=== PATIENT | male | born 1965 | race African-American/Black ===

== ENCOUNTER 2019-04-02 00:19 | Inpatient (IN) | payer MEDICAID ==
[~2019-04-02] VITALS: Ht 188 cm; Wt 166.7 kg
[~2019-04-02 00:19] MED LIST: ASPRIN; CARV-39; HCTZ; LISI-170; SIMV80TA18 PO; TOPI50TA35
[2019-04-02] MEDS ORDERED: SODIUM CHLORIDE FLUSH 10ML SYR IVF ONE (00:30)
[2019-04-02] MEDS ORDERED: NITROGLYCERIN OINT 2%, 1GM TP ONE ×2 (00:30→00:39)
[2019-04-02] MEDS ORDERED: HEPARIN 5,000 UNITS/ML, 1ML IV ONE (00:30)
[2019-04-02] MEDS ORDERED: HEPARIN 5,000 UNITS/ML, 1ML ONE (00:39)
[2019-04-02] MEDS ORDERED: HEPARIN 25,000 UNITS/500ML PMX 500 ML ONE (00:40)
[2019-04-02 00:49] LABS: MEAN CORPUSCULAR HEMOGLOBIN 27.2 pg (27.5-34.5); MEAN CORPUSCULAR HGB CONC 31.7 g/dL (33.2-36.2); MEAN CORPUSCULAR VOLUME 85.7 fL (81-97); MEAN PLATELET VOLUME 8.2 fL (7.4-10.4); PLATELET COUNT 272 x10^3/uL (130-400); RED BLOOD COUNT 5.41 x10^6/uL (4.38-5.82); RED CELL DISTRIBUTION WIDTH 15.6 % (9.4-14.8)
[2019-04-02] MEDS: HEPARIN 25,000 UNITS/500ML PMX 500 ML IV PRN ×3 (00:55→22:58)
[2019-04-02 00:57] LABS: INTERNATIONAL NORMALIZED RATIO 0.99 (0.93-1.1); PROTHROMBIN TIME 10.4 Seconds (9.6-11.5)
--- NOTE | 2019-04-02 00:58 | NUR ---
PT WITH HEPARIN DRIP STARTED AND NTG PATCH PLACED TO PT LEFT CHEST. PT REMAINS PAIN FREE. BP IS IMPROVING WITH LAST BP AT 168/97
[2019-04-02 00:59] LABS: ALANINE AMINOTRANSFERASE 31 U/L (12-78); ALBUMIN 3.6 g/dL (3.4-5.0); ANION GAP 5 mmol/L (5-15); CALCIUM 8.7 mg/dL (8.5-10.1); CHLORIDE 110 mmol/L (98-107); CREATININE 1.25 mg/dL (0.7-1.3)
[2019-04-02] MEDS ORDERED: POLYETHYLENE GLYCOL 17 GM PACKET PO PRN (01:00)
[2019-04-02] MEDS ORDERED: BISACODYL 10 MG SUPP PR PRN (01:00)
[2019-04-02] MEDS ORDERED: ONDANSETRON 2MG/ML, 2ML IVPush PRN (01:00)
[2019-04-02] MEDS ORDERED: OXYcodone IR 5MG TABLET PO PRN (01:00)
[2019-04-02] MEDS ORDERED: hydrALAzine 20 MG/ML, 1ML IVPush PRN (01:00)
[2019-04-02] MEDS ORDERED: morphine SULFATE 10 MG/ML, 1ML IVPush PRN (01:00)
[2019-04-02] MEDS ORDERED: ONDANSETRON ODT 4 MG PO PRN (01:00)
[2019-04-02] MEDS ORDERED: ACETAMINOPHEN 325 MG TABLET PO PRN (01:00)
[2019-04-02] MEDS ORDERED: HEPARIN 5,000 UNITS/ML, 1ML SQ SCH (01:00)
[2019-04-02] MEDS ORDERED: DOCUSATE 100 MG CAPSULE PO PRN (01:00)
[2019-04-02] MEDS ORDERED: NITROGLYCERIN 0.4 MG BOTTLE (25 TABS) SL PRN (01:00)
[2019-04-02] MEDS ORDERED: PROMETHAZINE 25 MG/ML, 1ML IM PRN (01:00)
[2019-04-02 01:04] LABS: ALKALINE PHOSPHATASE 126 U/L (45-117); BILIRUBIN,TOTAL 0.2 mg/dL (0.2-1.0); TOTAL PROTEIN 7.5 g/dL (6.4-8.2)
[2019-04-02 01:05] LABS: TROPONIN I 0.175 ng/mL (0.000-0.045)
[2019-04-02 01:15] LABS: MD YES
[2019-04-02 01:20] LABS: BAND#(MANUAL) 0.08 x10^3/uL; BANDS%(MANUAL) 1 % (0-7); BASOS#(MANUAL) 0.08 x10^3/uL (0-0.1); BASOS% (MANUAL) 1 % (0-1); EOS#(MANUAL) 0.23 x10^3/uL (0.0-0.4); EOS% (MANUAL) 3 % (1-7); LYMPH#(MANUAL) 1.88 x10^3/uL (1-3.4); LYMPHS% (MANUAL) 25 % (22-44); METAMYELOCYTES# (MANUAL) 0.08 x10^3/uL (0-0); METAMYELOCYTES% (MANUAL) 1 % (0-1); MONOS#(MANUAL) 0.45 x10^3/uL (0.3-2.7); MONOS% (MANUAL) 6 % (2-9); MYELOCYTES# (MANUAL) 0.08 x10^3/uL (0-0); MYELOCYTES% (MANUAL) 1 % (0-0); REACTIVE LYMPHS # (MANUAL) 0.38 x10^3/uL (0-0); REACTIVE LYMPHS % (MANUAL) 5 % (0-0); SEG#(MANUAL) 4.28 x10^3/uL (1.8-6.8); SEGS% (MANUAL) 57 % (42-75)
[2019-04-02 01:21] LABS: ANISOCYTOSIS 1+
[2019-04-02 01:22] LABS: <PLATELET ESTIMATE> ADEQUATE; LARGE PLATELETS 1+; OVALOCYTES 1+
[2019-04-02 01:29] LABS: FREE T4 (FREE THYROXINE) 0.88 ng/dL (0.76-1.46)
[2019-04-02 01:42] VITALS: BP 161/104
[2019-04-02] MEDS ORDERED: CLOP75TA52 PO (02:01)
[2019-04-02] MEDS: SODIUM CHLORIDE 0.9% 1,000 ML IV SCH ×4 (02:16→23:08)
[2019-04-02 02:21] VITALS: BP 153/106
[2019-04-02 05:49] VITALS: BP 141/67
[2019-04-02] MEDS: ASPIRIN 325 MG TABLET EC PO SCH (05:53)
[2019-04-02] MEDS: CARVEDILOL 12.5 MG TABLET PO SCH ×2 (05:53→17:49)
[2019-04-02 06:58] LABS: BASOPHILS # (AUTO) 0.11 x10^3/uL (0-0.1); BASOPHILS % (AUTO) 2 % (0-1); EOSINOPHILS # (AUTO) 0.32 x10^3/uL (0-0.4); EOSINOPHILS % (AUTO) 5 % (1-7); LYMPHOCYTES # (AUTO) 2.05 x10^3/uL (1-3.4); LYMPHOCYTES % (AUTO) 35 % (22-44); MD NO; MEAN CORPUSCULAR HEMOGLOBIN 27.3 pg (27.5-34.5); MEAN CORPUSCULAR HGB CONC 31.9 g/dL (33.2-36.2); MEAN CORPUSCULAR VOLUME 85.6 fL (81-97); MEAN PLATELET VOLUME 8.4 fL (7.4-10.4); MONOCYTES # (AUTO) 0.57 x10^3/uL (0.2-0.8); MONOCYTES % (AUTO) 10 % (2-9); NEUTROPHILS # (AUTO) 2.79 x10^3/uL (1.8-6.8); NEUTROPHILS % (AUTO) 48 % (42-75); PLATELET COUNT 209 x10^3/uL (130-400); RED BLOOD COUNT 5.26 x10^6/uL (4.38-5.82); RED CELL DISTRIBUTION WIDTH 15.5 % (9.4-14.8)
[2019-04-02 07:05] LABS: CHLORIDE 111 mmol/L (98-107)
[2019-04-02 07:12] LABS: ALANINE AMINOTRANSFERASE 29 U/L (12-78); ALBUMIN 3.3 g/dL (3.4-5.0); ALKALINE PHOSPHATASE 107 U/L (45-117); ANION GAP 6 mmol/L (5-15); BILIRUBIN,TOTAL 0.3 mg/dL (0.2-1.0); CALCIUM 8.5 mg/dL (8.5-10.1); CHOL/HDL RATIO 3.1; CHOLESTEROL, TOTAL 119 mg/dL (140-239); CREATININE 1.03 mg/dL (0.7-1.3); HDL CHOL % 33 % (26-37); HDL CHOLESTEROL (DIRECT) 39 mg/dL (40-60); LDL CHOLESTEROL,CALCULATED 67 mg/dL (54-169); LDL/HDL RATIO 1.7 (0.5-3.0); TRIGLYCERIDES 65 mg/dL (50-200); TROPONIN I 0.144 ng/mL (0.000-0.045); VLDL CHOLESTEROL 13 mg/dL (0-25)
[2019-04-02 08:00] VITALS: BP 149/95
[2019-04-02] MEDS: LISINOPRIL 20 MG TABLET PO SCH (08:34)
[2019-04-02 08:35] LABS: TROPONIN I 0.153 ng/mL (0.000-0.045)
[2019-04-02] MEDS: HEPARIN 5,000 UNITS/ML, 1ML IV PRN ×3 (09:14→22:56)
[2019-04-02] MEDS ORDERED: SODIUM CHLORIDE 0.9% 1,000 ML IV SCH (11:00)
[2019-04-02 13:10] VITALS: BP 136/95
[2019-04-02] MEDS ORDERED: FENTANYL PF 100 MCG/2ML ONE (14:22)
[2019-04-02] MEDS ORDERED: MIDAZOLAM 1 MG/ML, 5ML ONE (14:22)
[2019-04-02] MEDS ORDERED: HEPARIN 1,000 UNITS/ML, 10ML ONE (14:22)
[2019-04-02] MEDS ORDERED: LIDOCAINE-MPF 1%, 5ML ONE (14:22)
[2019-04-02] MEDS ORDERED: VERAPAMIL 2.5 MG/ML, 2ML ONE (14:22)
[2019-04-02] MEDS ORDERED: CHLORHEXIDINE 15 ML UDC MM PRN (15:30)
[2019-04-02] MEDS ORDERED: INSULIN LISPRO 100 UNITS/ML, PEN SQ-INSULIN SCH (15:30)
[2019-04-02 15:56] LABS: ALBUMIN 3.5 g/dL (3.4-5.0); ANION GAP 6 mmol/L (5-15); CALCIUM 8.5 mg/dL (8.5-10.1); CHLORIDE 108 mmol/L (98-107)
[2019-04-02 15:59] LABS: ALANINE AMINOTRANSFERASE 30 U/L (12-78); ALKALINE PHOSPHATASE 108 U/L (45-117); BILIRUBIN,TOTAL 0.8 mg/dL (0.2-1.0); CREATININE 0.94 mg/dL (0.7-1.3); TOTAL PROTEIN 7.3 g/dL (6.4-8.2)
[2019-04-02 16:33] LABS: BASOPHILS # (AUTO) 0.08 x10^3/uL (0-0.1); BASOPHILS % (AUTO) 1 % (0-1); EOSINOPHILS # (AUTO) 0.35 x10^3/uL (0-0.4); EOSINOPHILS % (AUTO) 6 % (1-7); LYMPHOCYTES # (AUTO) 2.21 x10^3/uL (1-3.4); LYMPHOCYTES % (AUTO) 37 % (22-44); MD SCAN; MEAN CORPUSCULAR HEMOGLOBIN 27.4 pg (27.5-34.5); MEAN CORPUSCULAR HGB CONC 32.1 g/dL (33.2-36.2); MEAN CORPUSCULAR VOLUME 85.4 fL (81-97); MEAN PLATELET VOLUME 8.4 fL (7.4-10.4); MONOCYTES # (AUTO) 0.57 x10^3/uL (0.2-0.8); MONOCYTES % (AUTO) 10 % (2-9); NEUTROPHILS # (AUTO) 2.71 x10^3/uL (1.8-6.8); NEUTROPHILS % (AUTO) 46 % (42-75); PLATELET COUNT 258 x10^3/uL (130-400); RED BLOOD COUNT 5.43 x10^6/uL (4.38-5.82); RED CELL DISTRIBUTION WIDTH 15.3 % (9.4-14.8)
[2019-04-02 19:01] VITALS: BP 128/75
[2019-04-02 19:43] LABS: MICROSCOPIC NOT IND
[2019-04-02] MEDS ORDERED: NITROGLYCERIN OINT 2%, 1GM TP SCH (21:00)
[2019-04-02] MEDS: ATORVASTATIN 80 MG TABLET PO SCH (21:03)
[2019-04-02] MEDS: NITROGLYCERIN OINT 2%, 1GM TP SCH (21:04)
[2019-04-02] MEDS: SODIUM CHLORIDE FLUSH 10ML SYR IVF SCH (21:05)
[2019-04-03] MEDS: NITROGLYCERIN OINT 2%, 1GM TP SCH ×4 (03:00→17:47)
[2019-04-03 03:59] VITALS: BP 107/68
[2019-04-03 06:11] VITALS: BP 130/88
[2019-04-03] MEDS: CARVEDILOL 12.5 MG TABLET PO SCH ×2 (06:17→17:41)
[2019-04-03] MEDS: ASPIRIN 325 MG TABLET EC PO SCH (06:17)
[2019-04-03 07:00] VITALS: BP 134/88
[2019-04-03] MEDS: SODIUM CHLORIDE 0.9% 1,000 ML IV SCH (07:08)
[2019-04-03] MEDS: SODIUM CHLORIDE FLUSH 10ML SYR IVF SCH ×2 (08:34→22:07)
[2019-04-03] MEDS: LISINOPRIL 20 MG TABLET PO SCH (08:35)
[2019-04-03 13:19] VITALS: BP 169/110
[2019-04-03 14:53] VITALS: BP 126/82
[2019-04-03] MEDS: HEPARIN 25,000 UNITS/500ML PMX 500 ML IV PRN (14:54)
[2019-04-03 19:20] VITALS: BP 149/91
[2019-04-03] MEDS: ATORVASTATIN 80 MG TABLET PO SCH (22:07)
[2019-04-04 00:16] VITALS: BP 124/74
[2019-04-04] MEDS: NITROGLYCERIN OINT 2%, 1GM TP SCH ×4 (00:19→17:58)
[2019-04-04 05:20] LABS: BASOPHILS # (AUTO) 0.11 x10^3/uL (0-0.1); BASOPHILS % (AUTO) 2 % (0-1); EOSINOPHILS # (AUTO) 0.41 x10^3/uL (0-0.4); EOSINOPHILS % (AUTO) 7 % (1-7); LYMPHOCYTES % (AUTO) 33 % (22-44); MD NO; MEAN CORPUSCULAR HEMOGLOBIN 27.3 pg (27.5-34.5); MEAN CORPUSCULAR HGB CONC 32.4 g/dL (33.2-36.2); MEAN CORPUSCULAR VOLUME 84.2 fL (81-97); MEAN PLATELET VOLUME 8.2 fL (7.4-10.4); MONOCYTES # (AUTO) 0.66 x10^3/uL (0.2-0.8); MONOCYTES % (AUTO) 11 % (2-9); NEUTROPHILS # (AUTO) 3.04 x10^3/uL (1.8-6.8); NEUTROPHILS % (AUTO) 48 % (42-75); PLATELET COUNT 280 x10^3/uL (130-400); RED BLOOD COUNT 5.18 x10^6/uL (4.38-5.82); RED CELL DISTRIBUTION WIDTH 15.1 % (9.4-14.8)
[2019-04-04 05:35] LABS: ANION GAP 6 mmol/L (5-15); CALCIUM 8.6 mg/dL (8.5-10.1); CHLORIDE 107 mmol/L (98-107)
[2019-04-04 05:36] LABS: CREATININE 1.16 mg/dL (0.7-1.3)
[2019-04-04 06:39] VITALS: BP 125/81
[2019-04-04] MEDS: ASPIRIN 325 MG TABLET EC PO SCH (06:45)
[2019-04-04] MEDS: CARVEDILOL 12.5 MG TABLET PO SCH (06:46)
[2019-04-04] MEDS: HEPARIN 25,000 UNITS/500ML PMX 500 ML IV PRN ×2 (06:55→21:40)
[2019-04-04] MEDS: LISINOPRIL 20 MG TABLET PO SCH (09:54)
[2019-04-04] MEDS: SODIUM CHLORIDE FLUSH 10ML SYR IVF SCH ×2 (09:55→20:59)
[2019-04-04 12:40] VITALS: BP 135/89
[2019-04-04] MEDS: NICOTINE 7 MG/24 HR PATCH.TD24 TD SCH (14:41)
[2019-04-04 17:57] VITALS: BP 136/88
[2019-04-04] MEDS: CARVEDILOL 6.25 MG TABLET PO SCH (17:58)
[2019-04-04 19:37] VITALS: BP 145/89
[2019-04-04] MEDS: ATORVASTATIN 80 MG TABLET PO SCH (20:59)
[2019-04-05 00:04] VITALS: BP 134/84
[2019-04-05] MEDS: NITROGLYCERIN OINT 2%, 1GM TP SCH ×4 (00:10→18:09)
[2019-04-05] MEDS: TEMAZEPAM 15 MG CAPSULE PO PRN ×2 (00:11→22:30)
[2019-04-05 06:18] VITALS: BP 138/92
[2019-04-05] MEDS: ASPIRIN 325 MG TABLET EC PO SCH (06:28)
[2019-04-05 07:15] VITALS: BP 128/88
[2019-04-05 07:18] LABS: BASOPHILS # (AUTO) 0.07 x10^3/uL (0-0.1); BASOPHILS % (AUTO) 1 % (0-1); EOSINOPHILS # (AUTO) 0.38 x10^3/uL (0-0.4); EOSINOPHILS % (AUTO) 6 % (1-7); LYMPHOCYTES # (AUTO) 2.34 x10^3/uL (1-3.4); LYMPHOCYTES % (AUTO) 37 % (22-44); MD NO; MEAN CORPUSCULAR HEMOGLOBIN 26.9 pg (27.5-34.5); MEAN CORPUSCULAR HGB CONC 32.3 g/dL (33.2-36.2); MEAN CORPUSCULAR VOLUME 83.2 fL (81-97); MEAN PLATELET VOLUME 8.6 fL (7.4-10.4); MONOCYTES # (AUTO) 0.64 x10^3/uL (0.2-0.8); MONOCYTES % (AUTO) 10 % (2-9); NEUTROPHILS # (AUTO) 2.94 x10^3/uL (1.8-6.8); NEUTROPHILS % (AUTO) 46 % (42-75); PLATELET COUNT 274 x10^3/uL (130-400); RED BLOOD COUNT 5.27 x10^6/uL (4.38-5.82); RED CELL DISTRIBUTION WIDTH 15.1 % (9.4-14.8)
[2019-04-05 07:24] LABS: ANION GAP 5 mmol/L (5-15); CHLORIDE 108 mmol/L (98-107); CREATININE 1.27 mg/dL (0.7-1.3)
[2019-04-05] MEDS: SODIUM CHLORIDE FLUSH 10ML SYR IVF SCH ×3 (09:29→21:43)
[2019-04-05] MEDS: CARVEDILOL 6.25 MG TABLET PO SCH ×2 (09:29→18:09)
[2019-04-05] MEDS: LISINOPRIL 20 MG TABLET PO SCH (09:29)
[2019-04-05] MEDS ORDERED: ACETAMINOPHEN 325 MG TABLET PO PRN (10:00)
[2019-04-05] MEDS ORDERED: INSULIN LISPRO 100 UNITS/ML, PEN SQ-INSULIN SCH (10:00)
[2019-04-05] MEDS ORDERED: CHLORHEXIDINE 15 ML UDC MM PRN (10:00)
[2019-04-05] MEDS ORDERED: METOPROLOL TARTRATE 25 MG TABLET PO ONE (10:00)
[2019-04-05 10:09] LABS: BASOPHILS # (AUTO) 0.09 x10^3/uL (0-0.1); BASOPHILS % (AUTO) 2 % (0-1); EOSINOPHILS # (AUTO) 0.38 x10^3/uL (0-0.4); EOSINOPHILS % (AUTO) 6 % (1-7); LYMPHOCYTES # (AUTO) 1.74 x10^3/uL (1-3.4); LYMPHOCYTES % (AUTO) 28 % (22-44); MD NO; MEAN CORPUSCULAR HEMOGLOBIN 27.4 pg (27.5-34.5); MEAN CORPUSCULAR VOLUME 85.8 fL (81-97); MEAN PLATELET VOLUME 8.2 fL (7.4-10.4); MONOCYTES # (AUTO) 0.71 x10^3/uL (0.2-0.8); MONOCYTES % (AUTO) 12 % (2-9); NEUTROPHILS # (AUTO) 3.23 x10^3/uL (1.8-6.8); NEUTROPHILS % (AUTO) 53 % (42-75); PLATELET COUNT 285 x10^3/uL (130-400); RED BLOOD COUNT 5.47 x10^6/uL (4.38-5.82); RED CELL DISTRIBUTION WIDTH 15.3 % (9.4-14.8)
[2019-04-05 10:19] LABS: INTERNATIONAL NORMALIZED RATIO 1.02 (0.93-1.1); PROTHROMBIN TIME 10.7 Seconds (9.6-11.5)
[2019-04-05 10:22] LABS: ALBUMIN 3.7 g/dL (3.4-5.0); ANION GAP 6 mmol/L (5-15); CALCIUM 8.9 mg/dL (8.5-10.1); CHLORIDE 106 mmol/L (98-107)
[2019-04-05 10:28] LABS: ALANINE AMINOTRANSFERASE 71 U/L (12-78); ALKALINE PHOSPHATASE 114 U/L (45-117); BILIRUBIN,TOTAL 0.8 mg/dL (0.2-1.0); CREATININE 1.28 mg/dL (0.7-1.3); TOTAL PROTEIN 7.8 g/dL (6.4-8.2)
[2019-04-05 12:25] LABS: HEMOGLOBIN A1C 5.8 % (4.2-6.3)
[2019-04-05 12:26] VITALS: BP 125/82
[2019-04-05 12:42] LABS: MICROSCOPIC NOT IND
[2019-04-05] MEDS: NICOTINE 7 MG/24 HR PATCH.TD24 TD SCH (13:47)
[2019-04-05] MEDS: HEPARIN 25,000 UNITS/500ML PMX 500 ML IV PRN (13:51)
[2019-04-05 18:08] VITALS: BP 124/76
[2019-04-05 19:47] VITALS: BP 140/90
[2019-04-05] MEDS: ATORVASTATIN 80 MG TABLET PO SCH (21:40)
[2019-04-05] MEDS: MUPIROCIN OINT 2%, 22GM TP SCH (22:31)
[2019-04-06 00:33] VITALS: BP 115/72
[2019-04-06] MEDS: NITROGLYCERIN OINT 2%, 1GM TP SCH ×5 (00:35→22:42)
[2019-04-06 04:49] VITALS: BP 124/69
[2019-04-06 05:20] LABS: BASOPHILS # (AUTO) 0.08 x10^3/uL (0-0.1); BASOPHILS % (AUTO) 1 % (0-1); EOSINOPHILS # (AUTO) 0.43 x10^3/uL (0-0.4); EOSINOPHILS % (AUTO) 6 % (1-7); LYMPHOCYTES # (AUTO) 2.21 x10^3/uL (1-3.4); LYMPHOCYTES % (AUTO) 31 % (22-44); MD NO; MEAN CORPUSCULAR HEMOGLOBIN 27.2 pg (27.5-34.5); MEAN CORPUSCULAR HGB CONC 31.7 g/dL (33.2-36.2); MEAN CORPUSCULAR VOLUME 85.8 fL (81-97); MEAN PLATELET VOLUME 8.4 fL (7.4-10.4); MONOCYTES # (AUTO) 0.77 x10^3/uL (0.2-0.8); MONOCYTES % (AUTO) 11 % (2-9); NEUTROPHILS % (AUTO) 51 % (42-75); PLATELET COUNT 261 x10^3/uL (130-400); RED BLOOD COUNT 5.31 x10^6/uL (4.38-5.82); RED CELL DISTRIBUTION WIDTH 15.5 % (9.4-14.8)
[2019-04-06 05:33] LABS: ANION GAP 3 mmol/L (5-15); CALCIUM 9.1 mg/dL (8.5-10.1); CHLORIDE 108 mmol/L (98-107)
[2019-04-06] MEDS: ASPIRIN 325 MG TABLET EC PO SCH (06:00)
[2019-04-06] MEDS: CARVEDILOL 6.25 MG TABLET PO SCH ×2 (06:21→17:08)
[2019-04-06 07:26] VITALS: BP 137/89
[2019-04-06] MEDS ORDERED: DEXMEDETOMIDINE 200 MCG in SODIUM CHLORIDE 0.9% 48 ML IV SCH (07:30)
[2019-04-06] MEDS ORDERED: ALBUMIN HUMAN 5% 500 ML IV PRN (07:30)
[2019-04-06] MEDS ORDERED: CEFUROXIME 1.5 GM in SODIUM CHLORIDE 0.9% 50 ML IVPB PRN (07:30)
[2019-04-06] MEDS ORDERED: REGULAR INSULIN 62.5 UNITS in SODIUM CHLORIDE 0.9% 249.375 ML IV PRN ×2 (07:30→16:10)
[2019-04-06] MEDS ORDERED: POTASSIUM CHLORIDE 80 MEQ, SODIUM BICARBONATE 8.4% 10 MEQ, MAGNESIUM SULFATE 0.5 GM, LI... IV PRN (07:30)
[2019-04-06] MEDS ORDERED: MANNITOL PMX 20% 500 ML IVPB PRN (07:30)
[2019-04-06] MEDS ORDERED: PHENYLEPHRINE 10 MG in SODIUM CHLORIDE 0.9% 249 ML IV PRN ×2 (07:30→16:10)
[2019-04-06] MEDS ORDERED: VANCOMYCIN 2,200 MG in SODIUM CHLORIDE 0.9% 500 ML IVPB PRN (07:30)
[2019-04-06] MEDS ORDERED: EPINEPHRINE 2 MG in SODIUM CHLORIDE 0.9% 248 ML IV SCH (07:30)
[2019-04-06] MEDS: LISINOPRIL 20 MG TABLET PO SCH (07:33)
[2019-04-06] MEDS: SODIUM CHLORIDE FLUSH 10ML SYR IVF SCH ×5 (07:34→20:01)
[2019-04-06] MEDS: MUPIROCIN OINT 2%, 22GM TP SCH (07:54)
[2019-04-06] MEDS ORDERED: PAPAVERINE 30 MG/ML, 2ML ONE (08:42)
[2019-04-06] MEDS ORDERED: HEPARIN 1,000 UNITS/ML, 10ML ONE (08:42)
[2019-04-06] MEDS: DOCUSATE 100 MG CAPSULE PO SCH ×2 (09:00→20:01)
[2019-04-06] MEDS ORDERED: MIDAZOLAM 10MG/2 ML ONE (10:26)
[2019-04-06] MEDS ORDERED: FENTANYL PF 250 MCG/5ML ONE ×4 (10:26)
[2019-04-06] MEDS ORDERED: AMINOCAPROIC ACID 250 MG/ML, 20ML ONE ×2 (10:27)
[2019-04-06] MEDS ORDERED: PROPOFOL 10 MG/ML, 20ML ONE (10:27)
[2019-04-06] MEDS ORDERED: CALCIUM CHLORIDE 10%, 10ML SYR ONE ×2 (10:27→15:16)
[2019-04-06] MEDS ORDERED: PHENYLEPHRINE 10 MG/ML ONE (12:00)
[2019-04-06] MEDS ORDERED: EPINEPHRINE 1 MG/ML, 1ML ONE (12:00)
[2019-04-06] MEDS ORDERED: ROCURONIUM 10MG/ML,5ML ONE ×3 (12:00)
[2019-04-06] MEDS ORDERED: PAPAVERINE 30 MG/ML, 2ML IV ONE (12:07)
[2019-04-06] MEDS ORDERED: HEPARIN 1,000 UNITS/ML, 10ML IV ONE (12:08)
[2019-04-06] MEDS ORDERED: VASOPRESSIN 20 UNIT/ML, 1ML ONE (13:28)
[2019-04-06] MEDS ORDERED: PROTAMINE SULFATE 10 MG/ML, 25ML ONE ×2 (14:00)
[2019-04-06] MEDS ORDERED: LIDOCAINE-MPF 2% ,5ML ONE (15:20)
[2019-04-06] MEDS ORDERED: AMIODARONE 50 MG/ML, 3ML ONE (15:34)
[2019-04-06] MEDS ORDERED: SODIUM CHLORIDE 0.9% 1,000 ML IV PRN (16:10)
[2019-04-06] MEDS ORDERED: DEXMEDETOMIDINE 200 MCG in SODIUM CHLORIDE 0.9% 48 ML IV PRN (16:10)
[2019-04-06] MEDS ORDERED: DOBUTAMINE 250 MG in SODIUM CHLORIDE 0.9% 230 ML IV PRN (16:10)
[2019-04-06] MEDS ORDERED: VASOPRESSIN 50 UNIT in SODIUM CHLORIDE 0.9% 247.5 ML IV PRN (16:10)
[2019-04-06] MEDS ORDERED: NITROGLYCERIN/D5W PMX 250 ML IV PRN (16:10)
[2019-04-06] MEDS ORDERED: AMIODARONE 900 MG in DEXTROSE 5% 482 ML IV PRN ×2 (16:13→19:00)
[2019-04-06] MEDS ORDERED: LIDOCAINE 2%, 20ML ONE (16:15)
[2019-04-06] MEDS ORDERED: SODIUM BICARBONATE 1 MEQ/ML, 50ML VIAL ONE (16:15)
[2019-04-06] MEDS ORDERED: ALBUMIN HUMAN 25% 50 ML ONE (16:15)
[2019-04-06] MEDS ORDERED: HEPARIN 1,000 UNITS/ML, 30ML ONE (16:15)
[2019-04-06] MEDS ORDERED: FUROSEMIDE 20 MG/2 ML ONE (16:15)
[2019-04-06] MEDS ORDERED: DEXTROSE 4 GM TAB.CHEW PO PRN (16:30)
[2019-04-06] MEDS ORDERED: ONDANSETRON 2MG/ML, 2ML IVPush PRN (16:30)
[2019-04-06] MEDS ORDERED: BISACODYL 10 MG SUPP PR PRN (16:30)
[2019-04-06] MEDS ORDERED: GLUCAGON 1 MG IM PRN (16:30)
[2019-04-06] MEDS ORDERED: DEXTROSE 50%, 50ML SYRINGE IVPush PRN (16:30)
[2019-04-06] MEDS ORDERED: MIDAZOLAM 1 MG/ML, 5ML IVPush PRN (16:30)
[2019-04-06] MEDS: KSCALE TO 4.5 IV SCH ×2 (16:30→22:30)
[2019-04-06] MEDS ORDERED: INSULIN REGULAR 100 UNITS/ML, 3ML VIAL IVPush PRN (16:30)
[2019-04-06] MEDS ORDERED: ACETAMINOPHEN 650 MG SUPP PR PRN (16:30)
[2019-04-06] MEDS ORDERED: HYDROcodone/APAP 5/325 TABLET PO PRN (16:30)
[2019-04-06] MEDS ORDERED: FILTER 0.22 MICRON IV PRN (16:30)
[2019-04-06] MEDS ORDERED: EPINEPHRINE 2 MG in SODIUM CHLORIDE 0.9% 248 ML IV PRN (16:30)
[2019-04-06] MEDS ORDERED: LACTATED RINGERS 1,000 ML IV PRN (16:30)
[2019-04-06] MEDS ORDERED: BISACODYL 5 MG EC TABLET PO PRN (16:30)
[2019-04-06] MEDS ORDERED: SODIUM BICARB 8.4%, 50ML SYRINGE IV PRN (16:30)
[2019-04-06] MEDS ORDERED: PROCHLORPERAZINE 5 MG/ML, 2ML IVPush PRN (16:30)
[2019-04-06 16:49] LABS: GLUCOSE BY BLOOD GAS ANALYZER 131 mg/dL (70-110); HEMOGLOBIN BY BLOOD GAS ANALYZ 13.1 g/dL (14.0-18.0); POTASSIUM BY BLOOD GAS ANALYZR 4.2 mmol/L (3.6-5.5)
[2019-04-06 17:04] LABS: INTERNATIONAL NORMALIZED RATIO 1.17 (0.93-1.1)
[2019-04-06] MEDS: MAGNESIUM SULFATE 1 GM in SODIUM CHLORIDE 0.9% 50 ML IVPB SCH (17:07)
[2019-04-06 17:24] LABS: ANION GAP 7 mmol/L (5-15); CALCIUM 8.6 mg/dL (8.5-10.1); CHLORIDE 112 mmol/L (98-107)
[2019-04-06 17:25] LABS: CREATININE 1.55 mg/dL (0.7-1.3)
[2019-04-06 17:45] LABS: PROTHROMBIN TIME 12.2 Seconds (9.6-11.5)
[2019-04-06] MEDS ORDERED: PROPOFOL 100 ML IV PRN (18:00)
[2019-04-06] MEDS ORDERED: SODIUM BICARBONATE 1 MEQ/ML, 50ML VIAL IVPush STA (18:12)
[2019-04-06] MEDS: morphine SULFATE 10 MG/ML, 1ML IVPush PRN (18:22)
[2019-04-06] MEDS: ALBUTEROL SULFATE 2.5 MG/3 ML NPPB SCH ×2 (18:31→22:18)
[2019-04-06] MEDS ORDERED: DEXMEDETOMIDINE 1,000 MCG in SODIUM CHLORIDE 0.9% 240 ML IV PRN (19:30)
[2019-04-06] MEDS: CEFUROXIME 1.5 GM in SODIUM CHLORIDE 0.9% 50 ML IVPB SCH (19:58)
[2019-04-06] MEDS: ATORVASTATIN 80 MG TABLET PO SCH (20:01)
[2019-04-06] MEDS: MUPIROCIN OINT 2%, 22GM NAS SCH (20:02)
[2019-04-06] MEDS ORDERED: INSULIN LISPRO 100 UNITS/ML, PEN SQ-INSULIN SCH (21:00)
[2019-04-06] MEDS: VANCOMYCIN 2,200 MG in SODIUM CHLORIDE 0.9% 500 ML IVPB SCH (21:42)
[2019-04-06 22:12] LABS: ANION GAP 5 mmol/L (5-15); CALCIUM 8.7 mg/dL (8.5-10.1); CHLORIDE 112 mmol/L (98-107); CREATININE 1.41 mg/dL (0.7-1.3)
[2019-04-06] MEDS: ALBUTEROL SULFATE 2.5MG/0.5ML NPPB SCH (22:18)
[2019-04-07] MEDS: morphine SULFATE 10 MG/ML, 1ML IVPush PRN ×2 (02:30→04:18)
[2019-04-07] MEDS: ALBUTEROL SULFATE 2.5MG/0.5ML NPPB SCH ×4 (02:32→20:41)
[2019-04-07] MEDS: ALBUTEROL SULFATE 2.5 MG/3 ML NPPB SCH (02:32)
[2019-04-07] MEDS: INSULIN LISPRO 100 UNITS/ML, PEN SQ-INSULIN SCH ×6 (04:00→23:28)
[2019-04-07 04:16] LABS: BASOPHILS # (AUTO) 0.01 x10^3/uL (0-0.1); BASOPHILS % (AUTO) 0 % (0-1); EOSINOPHILS # (AUTO) 0.01 x10^3/uL (0-0.4); EOSINOPHILS % (AUTO) 0 % (1-7); LYMPHOCYTES # (AUTO) 0.62 x10^3/uL (1-3.4); LYMPHOCYTES % (AUTO) 5 % (22-44); MD NO; MEAN CORPUSCULAR HEMOGLOBIN 27.2 pg (27.5-34.5); MEAN CORPUSCULAR HGB CONC 32.1 g/dL (33.2-36.2); MEAN CORPUSCULAR VOLUME 84.8 fL (81-97); MONOCYTES # (AUTO) 1.11 x10^3/uL (0.2-0.8); MONOCYTES % (AUTO) 9 % (2-9); NEUTROPHILS # (AUTO) 10.48 x10^3/uL (1.8-6.8); NEUTROPHILS % (AUTO) 86 % (42-75); PLATELET COUNT 184 x10^3/uL (130-400); RED BLOOD COUNT 4.75 x10^6/uL (4.38-5.82); RED CELL DISTRIBUTION WIDTH 14.8 % (9.4-14.8)
[2019-04-07 04:27] LABS: ALBUMIN 3.1 g/dL (3.4-5.0); ANION GAP 3 mmol/L (5-15); CALCIUM 8.2 mg/dL (8.5-10.1); CHLORIDE 113 mmol/L (98-107); CREATININE 1.45 mg/dL (0.7-1.3)
[2019-04-07] MEDS: KSCALE TO 4.5 IV SCH ×2 (04:30→11:13)
[2019-04-07] MEDS: NITROGLYCERIN OINT 2%, 1GM TP SCH (06:00)
[2019-04-07] MEDS: OXYcodone IR 5MG TABLET PO PRN ×4 (06:04→21:50)
[2019-04-07] MEDS: CEFUROXIME 1.5 GM in SODIUM CHLORIDE 0.9% 50 ML IVPB SCH (06:42)
[2019-04-07] MEDS: CARVEDILOL 6.25 MG TABLET PO SCH ×2 (08:00→17:49)
[2019-04-07] MEDS ORDERED: ALBUMIN HUMAN 5% 500 ML IV ONE (08:30)
[2019-04-07] MEDS: SODIUM CHLORIDE FLUSH 10ML SYR IVF SCH ×3 (09:00→09:58)
[2019-04-07] MEDS: VANCOMYCIN 2,200 MG in SODIUM CHLORIDE 0.9% 500 ML IVPB SCH (09:41)
[2019-04-07] MEDS: AMIODARONE 200 MG TABLET PO SCH ×2 (09:57→20:12)
[2019-04-07] MEDS: ASPIRIN 81 MG TABLET EC PO SCH (09:57)
[2019-04-07] MEDS: DOCUSATE 100 MG CAPSULE PO SCH (09:57)
[2019-04-07] MEDS: MUPIROCIN OINT 2%, 22GM NAS SCH ×2 (09:59→20:12)
[2019-04-07 10:52] LABS: ANION GAP 4 mmol/L (5-15); CALCIUM 7.8 mg/dL (8.5-10.1); CHLORIDE 114 mmol/L (98-107); CREATININE 1.34 mg/dL (0.7-1.3)
[2019-04-07 13:03] LABS: ANION GAP 5 mmol/L (5-15); CHLORIDE 113 mmol/L (98-107); CREATININE 1.27 mg/dL (0.7-1.3)
[2019-04-07] MEDS: MAGNESIUM SULFATE 1 GM in SODIUM CHLORIDE 0.9% 50 ML IVPB SCH (14:15)
[2019-04-07 17:24] LABS: ANION GAP 5 mmol/L (5-15); CALCIUM 8.3 mg/dL (8.5-10.1); CHLORIDE 109 mmol/L (98-107); CREATININE 1.78 mg/dL (0.7-1.3)
[2019-04-07] MEDS: CHLORHEXIDINE 15 ML UDC MM SCH (20:12)
[2019-04-07] MEDS: ATORVASTATIN 80 MG TABLET PO SCH (20:12)
[2019-04-07 21:27] LABS: ANION GAP 5 mmol/L (5-15); CALCIUM 8.1 mg/dL (8.5-10.1); CHLORIDE 108 mmol/L (98-107); CREATININE 1.97 mg/dL (0.7-1.3)
[2019-04-07] MEDS: ACETAMINOPHEN 325 MG TABLET PO PRN (23:29)
[2019-04-08] MEDS: OXYcodone IR 5MG TABLET PO PRN ×6 (02:25→21:53)
[2019-04-08] MEDS: ALBUTEROL SULFATE 2.5MG/0.5ML NPPB SCH ×4 (03:44→19:45)
[2019-04-08] MEDS: INSULIN LISPRO 100 UNITS/ML, PEN SQ-INSULIN SCH ×2 (04:00→08:00)
[2019-04-08] MEDS: ACETAMINOPHEN 325 MG TABLET PO PRN ×2 (04:15→09:28)
[2019-04-08 04:31] LABS: MEAN CORPUSCULAR HEMOGLOBIN 27.3 pg (27.5-34.5); MEAN CORPUSCULAR HGB CONC 31.7 g/dL (33.2-36.2); MEAN CORPUSCULAR VOLUME 86.3 fL (81-97); MEAN PLATELET VOLUME 8.3 fL (7.4-10.4); PLATELET COUNT 167 x10^3/uL (130-400); RED BLOOD COUNT 4.62 x10^6/uL (4.38-5.82); RED CELL DISTRIBUTION WIDTH 15.3 % (9.4-14.8)
[2019-04-08 04:38] LABS: ANION GAP 4 mmol/L (5-15); CALCIUM 8.4 mg/dL (8.5-10.1); CHLORIDE 109 mmol/L (98-107); CREATININE 1.82 mg/dL (0.7-1.3)
[2019-04-08] MEDS: CARVEDILOL 6.25 MG TABLET PO SCH ×2 (05:30→16:51)
[2019-04-08 05:41] LABS: MD YES
[2019-04-08 05:43] LABS: <PLATELET ESTIMATE> ADEQUATE; <PLT MORPHOLOGY> NORMAL PLT MORPH; <RBC MORPHOLOGY> NORMAL; BAND#(MANUAL) 0.38 x10^3/uL; BANDS%(MANUAL) 2 % (0-7); LYMPH#(MANUAL) 0.95 x10^3/uL (1-3.4); LYMPHS% (MANUAL) 5 % (22-44); MONOS#(MANUAL) 0.95 x10^3/uL (0.3-2.7); MONOS% (MANUAL) 5 % (2-9); SEG#(MANUAL) 16.63 x10^3/uL (1.8-6.8); SEGS% (MANUAL) 88 % (42-75)
[2019-04-08] MEDS: AMIODARONE 200 MG TABLET PO SCH ×2 (08:14→20:07)
[2019-04-08] MEDS: ASPIRIN 81 MG TABLET EC PO SCH (08:14)
[2019-04-08] MEDS: MUPIROCIN OINT 2%, 22GM NAS SCH ×2 (08:15→20:11)
[2019-04-08] MEDS: CHLORHEXIDINE 15 ML UDC MM SCH ×2 (08:15→20:08)
[2019-04-08] MEDS ORDERED: MAGNESIUM HYDROXIDE 8%, 30ML UDC PO PRN (09:00)
[2019-04-08] MEDS ORDERED: ALBUMIN HUMAN 5% 500 ML IV ONE (09:00)
[2019-04-08] MEDS: BUDESONIDE 0.5 MG/2 ML INHA INH SCH ×2 (09:44→19:45)
[2019-04-08] MEDS: ENOXAPARIN 40 MG/0.4 ML SQ SCH (10:40)
[2019-04-08] MEDS: MAGNESIUM SULFATE 1 GM in SODIUM CHLORIDE 0.9% 50 ML IVPB SCH (16:51)
[2019-04-08] MEDS: ATORVASTATIN 80 MG TABLET PO SCH (20:07)
[2019-04-08] MEDS: SODIUM CHLORIDE FLUSH 10ML SYR IVF SCH (20:12)
[2019-04-08 22:00] VITALS: BP 120/86
[2019-04-09] VITALS (9 sets, daily range): BP systolic 91–143; BP diastolic 61–89
[2019-04-09] MEDS: OXYcodone IR 5MG TABLET PO PRN ×5 (01:00→17:57)
[2019-04-09] MEDS: ALBUTEROL SULFATE 2.5MG/0.5ML NPPB SCH ×4 (03:00→21:00)
[2019-04-09 04:42] LABS: MEAN CORPUSCULAR HGB CONC 31.5 g/dL (33.2-36.2); MEAN CORPUSCULAR VOLUME 85.8 fL (81-97); MEAN PLATELET VOLUME 8.6 fL (7.4-10.4); PLATELET COUNT 185 x10^3/uL (130-400); RED BLOOD COUNT 4.33 x10^6/uL (4.38-5.82)
[2019-04-09 04:46] LABS: ANION GAP 3 mmol/L (5-15); CALCIUM 8.7 mg/dL (8.5-10.1); CHLORIDE 107 mmol/L (98-107); CREATININE 1.74 mg/dL (0.7-1.3)
[2019-04-09] MEDS: CARVEDILOL 6.25 MG TABLET PO SCH ×2 (05:16→17:57)
[2019-04-09 05:50] LABS: MD YES
[2019-04-09 05:56] LABS: <RBC MORPHOLOGY> NORMAL; BAND#(MANUAL) 0.16 x10^3/uL; BANDS%(MANUAL) 1 % (0-7); BASOS#(MANUAL) 0.16 x10^3/uL (0-0.1); BASOS% (MANUAL) 1 % (0-1); EOS#(MANUAL) 0.16 x10^3/uL (0.0-0.4); EOS% (MANUAL) 1 % (1-7); LYMPH#(MANUAL) 1.24 x10^3/uL (1-3.4); LYMPHS% (MANUAL) 8 % (22-44); MONOS% (MANUAL) 9 % (2-9); REACTIVE LYMPHS # (MANUAL) 0.62 x10^3/uL (0-0); REACTIVE LYMPHS % (MANUAL) 4 % (0-0); SEG#(MANUAL) 11.78 x10^3/uL (1.8-6.8); SEGS% (MANUAL) 76 % (42-75)
[2019-04-09 05:57] LABS: <PLATELET ESTIMATE> ADEQUATE; <PLT MORPHOLOGY> NORMAL PLT MORPH
[2019-04-09] MEDS ORDERED: ALBUTEROL SULFATE 2.5 MG/3 ML ONE ×4 (07:29→20:48)
[2019-04-09] MEDS: AMIODARONE 200 MG TABLET PO SCH ×2 (08:26→20:02)
[2019-04-09] MEDS: SODIUM CHLORIDE FLUSH 10ML SYR IVF SCH ×2 (08:26→20:03)
[2019-04-09] MEDS: CHLORHEXIDINE 15 ML UDC MM SCH (08:27)
[2019-04-09] MEDS: MUPIROCIN OINT 2%, 22GM NAS SCH ×2 (08:27→20:05)
[2019-04-09] MEDS: ASPIRIN 81 MG TABLET EC PO SCH (08:27)
[2019-04-09] MEDS: CLOPIDOGREL 75 MG TABLET PO SCH (08:27)
[2019-04-09] MEDS: ENOXAPARIN 40 MG/0.4 ML SQ SCH (08:30)
[2019-04-09] MEDS: ACETAMINOPHEN 325 MG TABLET PO PRN ×2 (08:33→17:56)
[2019-04-09] MEDS: BUDESONIDE 0.5 MG/2 ML INHA INH SCH ×2 (09:00→21:00)
[2019-04-09] MEDS ORDERED: FUROSEMIDE 20 MG/2 ML IV ONE (11:00)
[2019-04-09] MEDS ORDERED: AMIODARONE 150 MG in DEXTROSE 5% 100 ML IV ONE (12:00)
[2019-04-09] MEDS ORDERED: FILTER 0.22 MICRON IV PRN (12:00)
[2019-04-09] MEDS ORDERED: AMIODARONE 900 MG in DEXTROSE 5% 482 ML IV PRN (12:00)
[2019-04-09] MEDS ORDERED: AMIODARONE 50 MG/ML, 3ML IVPush ONE (12:30)
[2019-04-09] MEDS ORDERED: AMIODARONE 300 MG in DEXTROSE 5% 100 ML IV ONE (12:30)
[2019-04-09] MEDS ORDERED: DIGOXIN 0.25 MG/ML, 2ML IVPush ONE (13:15)
[2019-04-09] MEDS ORDERED: FUROSEMIDE 40 MG/4 ML IV ONE (14:30)
[2019-04-09] MEDS: ATORVASTATIN 80 MG TABLET PO SCH (20:02)
[2019-04-10 01:01] VITALS: BP_SYST 102; BP_SYST 104; BP_DIAS 63; BP_DIAS 66
[2019-04-10] MEDS: ACETAMINOPHEN 325 MG TABLET PO PRN ×2 (02:58→13:59)
[2019-04-10] MEDS: OXYcodone IR 5MG TABLET PO PRN ×3 (02:59→17:48)
[2019-04-10] MEDS: ALBUTEROL SULFATE 2.5MG/0.5ML NPPB SCH ×4 (03:00→20:09)
[2019-04-10 05:22] VITALS: BP 108/76
[2019-04-10] MEDS: CARVEDILOL 6.25 MG TABLET PO SCH ×2 (05:25→18:17)
[2019-04-10 06:02] LABS: CHLORIDE 105 mmol/L (98-107)
[2019-04-10 06:04] LABS: MEAN CORPUSCULAR HEMOGLOBIN 27.1 pg (27.5-34.5); MEAN CORPUSCULAR HGB CONC 31.7 g/dL (33.2-36.2); MEAN CORPUSCULAR VOLUME 85.6 fL (81-97); MEAN PLATELET VOLUME 8.5 fL (7.4-10.4); PLATELET COUNT 233 x10^3/uL (130-400); RED BLOOD COUNT 4.45 x10^6/uL (4.38-5.82); RED CELL DISTRIBUTION WIDTH 15.2 % (9.4-14.8)
[2019-04-10 06:09] LABS: ANION GAP 6 mmol/L (5-15); CALCIUM 9.1 mg/dL (8.5-10.1); CREATININE 1.53 mg/dL (0.7-1.3)
[2019-04-10 06:32] LABS: MD YES
[2019-04-10 06:34] LABS: EOS#(MANUAL) 0.29 x10^3/uL (0.0-0.4); EOS% (MANUAL) 2 % (1-7); LYMPHS% (MANUAL) 7 % (22-44); MONOS#(MANUAL) 1.72 x10^3/uL (0.3-2.7); MONOS% (MANUAL) 12 % (2-9); SEGS% (MANUAL) 79 % (42-75)
[2019-04-10 06:35] LABS: <PLATELET ESTIMATE> ADEQUATE; <PLT MORPHOLOGY> NORMAL PLT MORPH; ANISOCYTOSIS 1+
[2019-04-10] MEDS ORDERED: ALBUTEROL/IPRATROPIUM 2.5MG/0.5MG, 3 ML ONE ×3 (07:03→18:40)
[2019-04-10] MEDS: BUDESONIDE 0.5 MG/2 ML INHA INH SCH ×2 (07:08→20:09)
[2019-04-10] MEDS: MUPIROCIN OINT 2%, 22GM NAS SCH ×2 (08:46→20:35)
[2019-04-10] MEDS: CLOPIDOGREL 75 MG TABLET PO SCH (08:48)
[2019-04-10] MEDS: MULTIVITS,STRESS FORMULA 1 TABLET PO SCH (08:48)
[2019-04-10] MEDS: ASPIRIN 81 MG TABLET EC PO SCH (08:50)
[2019-04-10] MEDS: AMIODARONE 200 MG TABLET PO SCH ×2 (08:50→20:36)
[2019-04-10] MEDS: SODIUM CHLORIDE FLUSH 10ML SYR IVF SCH ×2 (08:51→20:37)
[2019-04-10] MEDS: ASCORBIC ACID 500 MG TABLET PO SCH ×2 (08:54→17:48)
[2019-04-10] MEDS: ENOXAPARIN 40 MG/0.4 ML SQ SCH (09:47)
[2019-04-10 09:54] VITALS: BP 127/88
[2019-04-10 13:24] VITALS: BP 126/79
[2019-04-10] MEDS ORDERED: CHOLECALCIFEROL 400 UNITS/ML ORAL SOL PO SCH (16:30)
[2019-04-10 18:14] VITALS: BP 138/93
[2019-04-10] MEDS ORDERED: BISACODYL 5 MG EC TABLET ONE (20:26)
[2019-04-10] MEDS ORDERED: BISACODYL 5 MG EC TABLET PO PRN (20:30)
[2019-04-10] MEDS: ATORVASTATIN 80 MG TABLET PO SCH (20:36)
[2019-04-11 00:33] VITALS: BP 133/73
[2019-04-11] MEDS: ALBUTEROL SULFATE 2.5MG/0.5ML NPPB SCH ×4 (03:00→19:48)
[2019-04-11 04:29] LABS: MEAN CORPUSCULAR HEMOGLOBIN 27.3 pg (27.5-34.5); MEAN CORPUSCULAR HGB CONC 32.2 g/dL (33.2-36.2); MEAN CORPUSCULAR VOLUME 84.8 fL (81-97); PLATELET COUNT 261 x10^3/uL (130-400); RED BLOOD COUNT 4.29 x10^6/uL (4.38-5.82); RED CELL DISTRIBUTION WIDTH 15.2 % (9.4-14.8)
[2019-04-11 04:34] LABS: MD YES
[2019-04-11 04:40] LABS: ANION GAP 3 mmol/L (5-15); CALCIUM 8.9 mg/dL (8.5-10.1); CHLORIDE 106 mmol/L (98-107)
[2019-04-11 04:41] LABS: CREATININE 1.29 mg/dL (0.7-1.3)
[2019-04-11 04:44] LABS: EOS#(MANUAL) 0.64 x10^3/uL (0.0-0.4); EOS% (MANUAL) 5 % (1-7); LYMPHS% (MANUAL) 11 % (22-44); MONOS#(MANUAL) 0.89 x10^3/uL (0.3-2.7); MONOS% (MANUAL) 7 % (2-9); SEG#(MANUAL) 9.78 x10^3/uL (1.8-6.8); SEGS% (MANUAL) 77 % (42-75)
[2019-04-11 04:45] LABS: <PLATELET ESTIMATE> ADEQUATE; <PLT MORPHOLOGY> NORMAL PLT MORPH; <RBC MORPHOLOGY> NORMAL
[2019-04-11 06:22] VITALS: BP 126/87
[2019-04-11] MEDS: CARVEDILOL 6.25 MG TABLET PO SCH ×2 (06:23→17:38)
[2019-04-11] MEDS: ACETAMINOPHEN 325 MG TABLET PO PRN (06:23)
[2019-04-11] MEDS: OXYcodone IR 5MG TABLET PO PRN (06:23)
[2019-04-11 06:48] VITALS: BP 104/70
[2019-04-11] MEDS ORDERED: ALBUTEROL SULFATE 2.5 MG/3 ML ONE ×2 (06:52→14:13)
[2019-04-11] MEDS: BUDESONIDE 0.5 MG/2 ML INHA INH SCH ×2 (06:58→19:48)
[2019-04-11] MEDS: MUPIROCIN OINT 2%, 22GM NAS SCH (09:00)
[2019-04-11] MEDS: AMIODARONE 200 MG TABLET PO SCH ×2 (09:01→20:36)
[2019-04-11] MEDS: ASCORBIC ACID 500 MG TABLET PO SCH ×2 (09:02→17:38)
[2019-04-11] MEDS: MULTIVITS,STRESS FORMULA 1 TABLET PO SCH (09:02)
[2019-04-11] MEDS: ASPIRIN 81 MG TABLET EC PO SCH (09:02)
[2019-04-11] MEDS: CLOPIDOGREL 75 MG TABLET PO SCH (09:02)
[2019-04-11] MEDS: SODIUM CHLORIDE FLUSH 10ML SYR IVF SCH ×2 (09:02→20:36)
[2019-04-11] MEDS: ENOXAPARIN 40 MG/0.4 ML SQ SCH (12:38)
[2019-04-11 14:30] VITALS: BP 114/79
[2019-04-11 17:42] VITALS: BP 131/70
[2019-04-11] MEDS ORDERED: ALBUTEROL/IPRATROPIUM 2.5MG/0.5MG, 3 ML ONE (19:43)
[2019-04-11 20:04] VITALS: BP 142/83
[2019-04-11] MEDS: ATORVASTATIN 80 MG TABLET PO SCH (20:36)
[2019-04-11] MEDS: CHOLECALCIFEROL 400 UNITS TABLET PO SCH (20:36)
[2019-04-12] MEDS ORDERED: ENOXAPARIN 150 MG/ML SQ SCH (01:30)
[2019-04-12 01:33] VITALS: BP 132/79
[2019-04-12] MEDS ORDERED: ALBUTEROL/IPRATROPIUM 2.5MG/0.5MG, 3 ML ONE ×2 (01:46→21:12)
[2019-04-12] MEDS: ALBUTEROL SULFATE 2.5MG/0.5ML NPPB SCH ×4 (01:50→21:15)
[2019-04-12 05:31] LABS: BASOPHILS # (AUTO) 0.02 x10^3/uL (0-0.1); BASOPHILS % (AUTO) 0 % (0-1); EOSINOPHILS # (AUTO) 0.48 x10^3/uL (0-0.4); EOSINOPHILS % (AUTO) 4 % (1-7); LYMPHOCYTES # (AUTO) 1.24 x10^3/uL (1-3.4); LYMPHOCYTES % (AUTO) 9 % (22-44); MD NO; MEAN CORPUSCULAR HEMOGLOBIN 27.6 pg (27.5-34.5); MEAN CORPUSCULAR HGB CONC 32.3 g/dL (33.2-36.2); MEAN CORPUSCULAR VOLUME 85.4 fL (81-97); MEAN PLATELET VOLUME 7.6 fL (7.4-10.4); MONOCYTES # (AUTO) 1.33 x10^3/uL (0.2-0.8); MONOCYTES % (AUTO) 10 % (2-9); NEUTROPHILS # (AUTO) 10.68 x10^3/uL (1.8-6.8); NEUTROPHILS % (AUTO) 78 % (42-75); PLATELET COUNT 310 x10^3/uL (130-400); RED BLOOD COUNT 4.21 x10^6/uL (4.38-5.82)
[2019-04-12 05:42] LABS: ANION GAP 6 mmol/L (5-15); CALCIUM 8.7 mg/dL (8.5-10.1); CHLORIDE 105 mmol/L (98-107)
[2019-04-12 05:43] LABS: CREATININE 1.16 mg/dL (0.7-1.3)
[2019-04-12] MEDS: CARVEDILOL 6.25 MG TABLET PO SCH ×2 (06:07→17:14)
[2019-04-12 06:35] VITALS: BP 119/84
[2019-04-12] MEDS ORDERED: ALBUTEROL SULFATE 2.5 MG/3 ML ONE ×2 (07:29→14:44)
[2019-04-12] MEDS: ASPIRIN 81 MG TABLET EC PO SCH (08:31)
[2019-04-12] MEDS: MULTIVITS,STRESS FORMULA 1 TABLET PO SCH (08:31)
[2019-04-12] MEDS: CLOPIDOGREL 75 MG TABLET PO SCH (08:31)
[2019-04-12] MEDS: ASCORBIC ACID 500 MG TABLET PO SCH ×2 (08:31→17:13)
[2019-04-12] MEDS: SODIUM CHLORIDE FLUSH 10ML SYR IVF SCH ×2 (08:32→21:46)
[2019-04-12] MEDS: AMIODARONE 200 MG TABLET PO SCH ×2 (08:32→21:47)
[2019-04-12] MEDS: BUDESONIDE 0.5 MG/2 ML INHA INH SCH ×2 (10:43→21:15)
[2019-04-12 12:18] VITALS: BP 146/101
[2019-04-12 14:08] VITALS: BP 120/86
[2019-04-12] MEDS ORDERED: CHOLECALCIFEROL 400 UNITS TABLET PO SCH (16:30)
[2019-04-12] MEDS: CHOLECALCIFEROL 400 UNITS TABLET PO SCH (17:24)
[2019-04-12] MEDS: OXYcodone IR 5MG TABLET PO PRN ×2 (17:59→21:46)
[2019-04-12 19:25] VITALS: BP 109/74
[2019-04-12] MEDS: ATORVASTATIN 80 MG TABLET PO SCH (21:47)
[2019-04-12] MEDS: APIXABAN 5 MG TABLET PO SCH (21:47)
[2019-04-13] VITALS (7 sets, daily range): BP systolic 92–137; BP diastolic 46–80
[2019-04-13] MEDS ORDERED: ALBUTEROL SULFATE 2.5 MG/3 ML ONE ×4 (02:24→19:50)
[2019-04-13] MEDS: ALBUTEROL SULFATE 2.5MG/0.5ML NPPB SCH ×4 (02:28→20:22)
[2019-04-13 05:25] LABS: ANION GAP 5 mmol/L (5-15); CALCIUM 8.7 mg/dL (8.5-10.1); CHLORIDE 105 mmol/L (98-107)
[2019-04-13 05:27] LABS: CREATININE 1.26 mg/dL (0.7-1.3)
[2019-04-13] MEDS: OXYcodone IR 5MG TABLET PO PRN ×3 (06:00→22:25)
[2019-04-13] MEDS: CARVEDILOL 6.25 MG TABLET PO SCH ×2 (06:01→17:31)
[2019-04-13] MEDS: BUDESONIDE 0.5 MG/2 ML INHA INH SCH ×2 (07:30→20:22)
[2019-04-13] MEDS ORDERED: LIDOCAINE 1%, 10ML ONE (08:22)
[2019-04-13 09:22] LABS: MEAN CORPUSCULAR HEMOGLOBIN 26.6 pg (27.5-34.5); MEAN CORPUSCULAR HGB CONC 31.6 g/dL (33.2-36.2); MEAN CORPUSCULAR VOLUME 84.1 fL (81-97); PLATELET COUNT 340 x10^3/uL (130-400); RED BLOOD COUNT 4.23 x10^6/uL (4.38-5.82); RED CELL DISTRIBUTION WIDTH 15.1 % (9.4-14.8)
[2019-04-13] MEDS: MULTIVITS,STRESS FORMULA 1 TABLET PO SCH (09:27)
[2019-04-13] MEDS: CLOPIDOGREL 75 MG TABLET PO SCH (09:27)
[2019-04-13] MEDS: APIXABAN 5 MG TABLET PO SCH ×2 (09:27→22:21)
[2019-04-13] MEDS: SODIUM CHLORIDE FLUSH 10ML SYR IVF SCH ×2 (09:29→21:00)
[2019-04-13] MEDS: AMIODARONE 200 MG TABLET PO SCH ×2 (09:31→22:21)
[2019-04-13] MEDS: ASCORBIC ACID 500 MG TABLET PO SCH ×2 (09:31→17:31)
[2019-04-13 09:55] LABS: BASOPHILS # (AUTO) 0.04 x10^3/uL (0-0.1); BASOPHILS % (AUTO) 0 % (0-1); EOSINOPHILS % (AUTO) 5 % (1-7); LYMPHOCYTES # (AUTO) 1.68 x10^3/uL (1-3.4); LYMPHOCYTES % (AUTO) 13 % (22-44); MD SCAN; MONOCYTES # (AUTO) 1.38 x10^3/uL (0.2-0.8); MONOCYTES % (AUTO) 10 % (2-9); NEUTROPHILS # (AUTO) 9.49 x10^3/uL (1.8-6.8); NEUTROPHILS % (AUTO) 71 % (42-75)
[2019-04-13] MEDS: FUROSEMIDE 40 MG TABLET PO SCH (11:25)
[2019-04-13] MEDS: CHOLECALCIFEROL 400 UNITS TABLET PO SCH (17:31)
[2019-04-13] MEDS: ATORVASTATIN 80 MG TABLET PO SCH (22:21)
[2019-04-14 01:08] VITALS: BP 119/72
[2019-04-14] MEDS: ALBUTEROL SULFATE 2.5MG/0.5ML NPPB SCH ×2 (01:58→07:10)
[2019-04-14 04:59] LABS: MEAN CORPUSCULAR HGB CONC 32.2 g/dL (33.2-36.2); MEAN CORPUSCULAR VOLUME 83.7 fL (81-97); RED BLOOD COUNT 4.21 x10^6/uL (4.38-5.82); RED CELL DISTRIBUTION WIDTH 14.7 % (9.4-14.8)
[2019-04-14 05:08] LABS: ANION GAP 4 mmol/L (5-15); CALCIUM 8.7 mg/dL (8.5-10.1); CHLORIDE 104 mmol/L (98-107); CREATININE 1.26 mg/dL (0.7-1.3)
[2019-04-14 05:53] LABS: BASOPHILS # (AUTO) 0.06 x10^3/uL (0-0.1); BASOPHILS % (AUTO) 0 % (0-1); EOSINOPHILS # (AUTO) 0.88 x10^3/uL (0-0.4); EOSINOPHILS % (AUTO) 6 % (1-7); LYMPHOCYTES # (AUTO) 1.69 x10^3/uL (1-3.4); LYMPHOCYTES % (AUTO) 12 % (22-44); MD SCAN; MEAN PLATELET VOLUME 7.3 fL (7.4-10.4); MONOCYTES # (AUTO) 1.48 x10^3/uL (0.2-0.8); MONOCYTES % (AUTO) 11 % (2-9); NEUTROPHILS # (AUTO) 9.56 x10^3/uL (1.8-6.8); NEUTROPHILS % (AUTO) 70 % (42-75); PLATELET COUNT 417 x10^3/uL (130-400)
[2019-04-14] MEDS: CARVEDILOL 6.25 MG TABLET PO SCH (06:09)
[2019-04-14 06:51] VITALS: BP 136/80
[2019-04-14] MEDS ORDERED: ALBUTEROL SULFATE 2.5 MG/3 ML ONE (06:53)
[2019-04-14] MEDS: BUDESONIDE 0.5 MG/2 ML INHA INH SCH (07:10)
[2019-04-14] MEDS ORDERED: APIX5TAB PO (08:21)
[2019-04-14] MEDS ORDERED: AMIO200T42 PO (08:21)
[2019-04-14] MEDS ORDERED: CHOL400T2 PO (08:21)
[2019-04-14] MEDS ORDERED: FURO-93 PO (08:21)
[2019-04-14] MEDS ORDERED: ALBU2.5V11 NPPB (08:21)
[2019-04-14] MEDS ORDERED: ASCO500T6 PO (08:21)
[2019-04-14] MEDS ORDERED: OXYC5TAB3 PO (08:21)
[2019-04-14] MEDS ORDERED: CARV6.2512 PO (08:21)
[2019-04-14] MEDS ORDERED: BUDE0.5A INH (08:21)
[2019-04-14] MEDS: SODIUM CHLORIDE FLUSH 10ML SYR IVF SCH (10:02)
[2019-04-14] MEDS: ASCORBIC ACID 500 MG TABLET PO SCH (10:02)
[2019-04-14] MEDS: APIXABAN 5 MG TABLET PO SCH (10:02)
[2019-04-14] MEDS: FUROSEMIDE 40 MG TABLET PO SCH (10:03)
[2019-04-14] MEDS: CLOPIDOGREL 75 MG TABLET PO SCH (10:03)
[2019-04-14] MEDS: MULTIVITS,STRESS FORMULA 1 TABLET PO SCH (10:03)
[2019-04-14] MEDS: AMIODARONE 200 MG TABLET PO SCH (10:03)
[2019-04-14] MEDS: OXYcodone IR 5MG TABLET PO PRN (10:08)
== END 2019-04-14 11:41 | DRG 166 ==
LOC: ED 00:33 → EDIP 00:41 → 5SO 01:21 → CSU 04-06 11:29 → CCU 04-08 10:16 → 5SO 04-08 21:37
PROVIDERS: ADMIT Internal Medicine; ATTEND Hospitalist
PROC: 4A023N7 Measurement of Cardiac Sampling and Pressure, Left Heart, Percutaneous Approach (ICD-10-PCS; 2019-04-02)
PROC: B211YZZ Fluoroscopy of Multiple Coronary Arteries using Other Contrast (ICD-10-PCS; 2019-04-02)
PROC: B215YZZ Fluoroscopy of Left Heart using Other Contrast (ICD-10-PCS; 2019-04-02)
PROC: 021109W Bypass Coronary Artery, Two Arteries from Aorta with Autologous Venous Tissue, Open Approach (ICD-10-PCS; 2019-04-06)
PROC: 06BQ4ZZ Excision of Left Saphenous Vein, Percutaneous Endoscopic Approach (ICD-10-PCS; 2019-04-06)
PROC: 5A1221Z Performance of Cardiac Output, Continuous (ICD-10-PCS; 2019-04-06)
PROC: 30233R1 Transfusion of Nonautologous Platelets into Peripheral Vein, Percutaneous Approach (ICD-10-PCS; 2019-04-06)
PROC: 03HY32Z Insertion of Monitoring Device into Upper Artery, Percutaneous Approach (ICD-10-PCS; 2019-04-06)
PROC: 05HM33Z Insertion of Infusion Device into Right Internal Jugular Vein, Percutaneous Approach (ICD-10-PCS; 2019-04-06)
PROC: B543ZZA Ultrasonography of Right Jugular Veins, Guidance (ICD-10-PCS; 2019-04-06)
PROC: 02100Z9 Bypass Coronary Artery, One Artery from Left Internal Mammary, Open Approach (ICD-10-PCS; principal; 2019-04-06 10:00)
PROC: 5A2204Z Restoration of Cardiac Rhythm, Single (ICD-10-PCS; 2019-04-09)
PROC: 0W9B3ZZ Drainage of Left Pleural Cavity, Percutaneous Approach (ICD-10-PCS; 2019-04-13)
DX: I25.110 Atherosclerotic heart disease of native coronary artery with unstable angina pectoris (principal); J96.00 Acute respiratory failure, unspecified whether with hypoxia or hypercapnia; N17.9 Acute kidney failure, unspecified; I82.622 Acute embolism and thrombosis of deep veins of left upper extremity; Z68.42 Body mass index [BMI] 45.0-49.9, adult; E66.01 Morbid (severe) obesity due to excess calories; E86.1 Hypovolemia; I48.91 Unspecified atrial fibrillation; G89.18 Other acute postprocedural pain; E87.2 Acidosis; I13.0 Hypertensive heart and chronic kidney disease with heart failure and stage 1 through stage 4 chronic kidney disease, or unspecified chronic kidney disease; I50.30 Unspecified diastolic (congestive) heart failure; D72.829 Elevated white blood cell count, unspecified; E87.5 Hyperkalemia; E78.5 Hyperlipidemia, unspecified; F12.90 Cannabis use, unspecified, uncomplicated; F17.210 Nicotine dependence, cigarettes, uncomplicated; J44.9 Chronic obstructive pulmonary disease, unspecified; J93.9 Pneumothorax, unspecified; J98.11 Atelectasis; N18.9 Chronic kidney disease, unspecified; Z51.5 Encounter for palliative care; Z79.01 Long term (current) use of anticoagulants; Z79.02 Long term (current) use of antithrombotics/antiplatelets; Z82.49 Family history of ischemic heart disease and other diseases of the circulatory system; Z95.5 Presence of coronary angioplasty implant and graft; Z71.6 Tobacco abuse counseling
CPT/HCPCS: J3490; S0017; 32555; 36415; 36600; 71045; 71046; 80048; 80053; 80061; 81003; 82040; 82330; 82800; 82803; 82810; 82947; 82962; 83036; 83735; 83880; 84132; 84295; 84439; 84443; 84484; 85014; 85018; 85025; 85049; 85347; 85520; 85610; 85730; 86850; 86900; 86923; 87081; 92960; 93005; 93306; 93312; 93321; 93325; 93458; 93880; 93970; 94002; 94003; 94150; 94640; 99156; C1769; C1894; G0378; J0171; J0697; J1644; J1650; J1815; J1940; J2250; J2704; J2720; J3010; J3370; J3475; J3480; J7611; J7613; J7626; P9045; P9047; C1751; C1760; J0282; J0360; J1160; J2270; J2370; J2440; J7030; J7040; J7050; J7060; P9035; Q9967